=== PATIENT | female | born 1985 | race Hispanic/Latino ===

== ENCOUNTER 2021-01-03 15:55 | Emergency (ER) | payer SELFPAY ==
[2021-01-03] MEDS ORDERED: methylPREDNISolone Sod Succ/PF 125 MG/2 ML VIAL ONE (17:07)
[2021-01-03] MEDS ORDERED: Famotidine/PF 20 mg/2ml Vial ONE (17:07)
== END 2021-01-03 18:27 | disposition home or self-care (01) ==
LOC: ERS 15:55
DX: J30.81 Allergic rhinitis due to animal (cat) (dog) hair and dander (principal); E03.9 Hypothyroidism, unspecified
CPT/HCPCS: 96374; 96375; J2930; S0028

== ENCOUNTER 2021-01-05 22:17 | Emergency (ER) | payer SELFPAY ==
[2021-01-05] MEDS ORDERED: diphenhydrAMINE 50 MG CAP ONE (23:12)
== END 2021-01-06 00:07 | disposition home or self-care (01) ==
LOC: ERS 22:17
DX: J30.81 Allergic rhinitis due to animal (cat) (dog) hair and dander (principal); E03.9 Hypothyroidism, unspecified; Z79.899 Other long term (current) drug therapy
CPT/HCPCS: 99283

== ENCOUNTER 2021-01-17 11:08 | Emergency (ER) | payer SELFPAY | END 2021-01-17 11:58 | disposition home or self-care (01) | LOC: ERS 11:08 | DX: T78.49XA Other allergy, initial encounter (principal); E03.9 Hypothyroidism, unspecified | CPT/HCPCS: 99283 ==

== ENCOUNTER 2021-01-20 09:07 | Emergency (ER) | payer SELFPAY | END 2021-01-20 12:03 | disposition home or self-care (01) | LOC: ERS 09:07 | DX: H10.13 Acute atopic conjunctivitis, bilateral (principal); E03.9 Hypothyroidism, unspecified; Z79.899 Other long term (current) drug therapy | CPT/HCPCS: 99283 ==